=== PATIENT | male | born 1975 | race Caucasian/White ===

== ENCOUNTER → 2017-06-13 | Outpatient (CLI) | payer BC ==
--- NOTE | 2017-06-14 14:17 | US ---
History: Mass left axilla Study: Ultrasound axilla Findings: Ultrasound of the left axilla demonstrates an ovoid soft tissue density measuring 2.5 by 1. 5 centimeters. If this does represent a lymph node is markedly abnormal. The should be amenable to ul trasound-guided biopsy. Impression: Left axillary mass. Reported By:
== END | disposition home or self-care (01) | DRG 607 ==
LOC: RAD 11:47
PROVIDERS: ATTEND Nurse Practitioner Family
DX: R22.2 Localized swelling, mass and lump, trunk (principal)
CPT/HCPCS: 76882